=== PATIENT | male | born 1965 | race Caucasian/White ===

== ENCOUNTER 2020-02-24 14:09 | Emergency (ER) | payer OTHER ==
[~2020-02-24] VITALS: Ht 177.8 cm; Wt 81.7 kg
[2020-02-24] MEDS ORDERED: ERYTHROMYCIN E3.5 G2 OPHTHALMIC (15:07)
[2020-02-24 15:15] VITALS: BP 148/91
== END 2020-02-24 15:15 | disposition home or self-care (01) ==
LOC: ER 14:09
DX: S05.01XA Injury of conjunctiva and corneal abrasion without foreign body, right eye, initial encounter (principal); X58.XXXA Exposure to other specified factors, initial encounter; Y93.89 Activity, other specified; Y92.89 Other specified places as the place of occurrence of the external cause